=== PATIENT | male | born 1940 | race Caucasian/White ===

== ENCOUNTER 2018-05-15 06:33 | Day surgery (SDC) | payer MEDICARE ==
[2018-05-15] MEDS ORDERED: Propofol 10 mg/ml Inj (20 ML) ONE (07:55)
--- NOTE | 2018-05-15 07:58 | CP.SDSHP ---
Same Day Surgery H & P - History Proposed Procedure: egd. colonoscopy Pre-Op Diagnosis: iron deficiency anemia - Previous Medical/Surgical History Cardiac: Hypertension, ASHD/CAD Neuro: TIA/CVA Misc: Other (Peptic ulcer disease, DJD, Gastritis, GERD, ) Previous Surgical History: BII gastrojejunostomy for PUD/bleeding - Allergies Allergies: Allergies No Known Allergies Allergy (Verified 07/30/13 08:28) - Physical Exam Vital Signs: Vital Signs 05/15/18 07:19 Temperature 97.6 F Pulse Rate 64 Respiratory 17 Rate Blood Pressure 144/52 L O2 Sat by Pulse 98 Oximetry Mental Status: Alert & Oriented x3 Neuro: WNL Heart: WNL Lungs: WNL GI: WNL - Impression Impression: iron deficiency anemia Pt. Evaluated Today:Candidate for Anesthesia & Procedure: Yes - Date & Time Date: 05/15/18 Time: 07:58 Short Stay Discharge - Short Stay Discharge Admitting Diagnosis/Reason for Visit: HX PEPTIC ULCER / GERD /ANEMIA Disposition: HOME/ ROUTINE
[2018-05-15 08:58] VITALS: TEMP 97
[2018-05-15 09:38] VITALS: RESP 19; O2SAT 100
[2018-05-15 11:20] VITALS: BP 171/55; PULSE 68
== END 2018-05-15 10:10 | disposition home or self-care (01) ==
LOC: C.ENDO 06:33
PROVIDERS: ATTEND Internal Medicine Gastroenterology
DX: K21.9 Gastro-esophageal reflux disease without esophagitis (principal); Z90.3 Acquired absence of stomach [part of]; Z87.11 Personal history of peptic ulcer disease; K62.1 Rectal polyp; K57.30 Diverticulosis of large intestine without perforation or abscess without bleeding; K64.1 Second degree hemorrhoids; K44.9 Diaphragmatic hernia without obstruction or gangrene; K29.70 Gastritis, unspecified, without bleeding; I25.10 Atherosclerotic heart disease of native coronary artery without angina pectoris; I10 Essential (primary) hypertension; D50.9 Iron deficiency anemia, unspecified; Z86.73 Personal history of transient ischemic attack (TIA), and cerebral infarction without residual deficits
CPT/HCPCS: 43239; 45384; 82948; 88305; 88312; 88342; J2001; J2704